=== PATIENT | female | born 1980 | race Caucasian/White ===

== ENCOUNTER 2020-02-05 16:09 | Emergency (ER) | payer MEDICAID, SELFPAY ==
[2020-02-05 16:13] VITALS: BP 184/118; PULSE 116; RESP 18; TEMP 36.6; O2SAT 100; BMI 32.5
--- NOTE | 2020-02-05 16:23 | XR_ITS ---
WS: [id number] EXAM: LEFT ANKLE: 3 VIEWS DATE OF EXAMINATION: 02/05/2020, 1633 hours COMPARISON: None. HISTORY: Patient is 39 years old with ankle pain and swelling status post trauma. FINDINGS: Bone density is normal in appearance. There are findings of a Aguilera C fibular fracture with the fract ure plane extending into the inner syndesmotic ligament region about 4 cm above the level of the join t line. A posterior tibial malleolar fracture is seen with articular surface step-off on the lateral imaging by approximately 3-4 mm. No medial malleolar fracture is seen. No hindfoot fracture. Soft tis brooke swelling in the ankle is demonstrated. XR/XR ankle LT min 3V* [id number] IMPRESSION: Aguilera C fibular fracture and posterior malleolar tibial fracture as described. Orthopedic surgeon referral recommended.
--- NOTE | 2020-02-05 16:25 | ED_ITS ---
HPI - Extremity Injury (Lower) General: Chief Complaint: Extremity Injury, Lower Stated Complaint: LEFT FOOT INJURY Time Seen by Provider: 02/05/20 16:13 Source: patient Mode of arrival: other (crutches ) Limitations: no limitations History of Present Illness: HPI Narrative: Patient is a 39-year-old female who presents to ED today for evaluation of a left foot and ankle injury. Patient tells me approximately 4 days ago she was going down some stairs from her mobile home when she accidentally rolled/twisted the ankle. Patient states she has not been able to bear weight on the extremity since. She has been ambulatory with the help of crutches. No other injury sustained during the fall. MD complaint: ankle injury and foot injury Onset (ago): day(s) Injury: Left: ankle and foot Place: home Severity: severe Relieving factors: immobilization Exacerbating factors: weight bearing, movement and palpation Associated symptoms: Reports inability to bear weight Other symptoms: none Review of Systems Musc: Reports: extremity pain (L foot), extremity swelling (L foot), joint pain (L ankle) and joint swelling (L ankle) Physical Exam Const: COMMON NORMALS: no acute distress, patient oriented x3, no limitations and alert Extremity: GENERAL: Yes normal exam except as noted OTHER: pt has significant swelling throughout her L ankle and foot; there is ecchymosis surrounding the ankle and distal foot; NV intact; no obvious bony deformities noted but swelling obscures bony anatomy Neuro: COMMON NORMALS: patient oriented x3, moves all extremities, no focal motor deficits and no sensory deficits noted SENSORIUM/ORIENTATION: Yes alert Skin: OTHER: see extremity assessment; otherwise normal skin examination Course Consultations: Consultation #1: Dr. Aaron-patient was sent XR films for review; recommends well padded splint, elevation, and will see in office on Wednesday Vital Signs: Vital signs: Vital Signs Temperature 97.8 F 02/05/20 16:13 Pulse Rate 93 02/05/20 17:30 Respiratory Rate 18 02/05/20 17:30 Blood Pressure 163/91 02/05/20 17:30 Pulse Oximetry 100 02/05/20 17:30 MDM - Extremity Injury (Lower) MDM Narrative: Medical decision making narrative: pt will be splinted in a short leg posterior/sugar tong splint and information placed to get patient seen by Dr. Aaron on Wednesday for assessment of injury; patient already has crutches; she was instructed to ice and elevate extremity as much as possible; return to ED precautions given Imaging Data^: XR L foot: Radiologist's impression: [facility] [address] [place] [address] XRay Report Signed Patient: Dea Espinosa Unit #: [id number] : 1980 Acct#:[id number] Age/Sex: 39 / F ADM Date: 02/05/20 Loc: ER Room/Bed: Attending Dr: Ordering Provider/Ordering MD: Bouchra Garcia Date of Service: 02/05/20 Procedure(s): XR foot LT min 3V* 03724 Accession Number(s): [id number] Report Number: [id number] WS: [id number] EXAM: LEFT FOOT: 3 VIEWS DATE OF EXAMINATION: 02/05/2020, 1635 hours COMPARISON: None. HISTORY: 39 years old with fall down steps last and twisted the ankle. Complaining of pain. FINDINGS: Bone density is normal in appearance. Minimal change arthritis first metatarsal phalangeal joint. No fracture in the foot is seen. Posterior malleolar distal tibial fracture and Aguilera C fibular fracture noted on the exam. Please see left ankle film examination report from the same date. Tiny heel spur plantar aponeurosis insertion. Soft tissue swelling around the ankle and dorsal foot noted. XR/XR foot LT min 3V* [id number] IMPRESSION: Distal tibial posterior malleolar fracture with slight displacement and Aguilera C fibular fracture. No foot fracture seen. Dorsal soft tissue swelling. Orthopedic surgeon referral recommended. Dictated By: Kyle Colin MD Signed By: Kyle Colin MD Signed Date/Time: 02/05/201705 DD/ 03 XR L ankle: Radiologist's impression: [facility] [address] [place] [address] XRay Report Signed Patient: Dea Espinosa Unit #: [id number] : 1980 Age/Sex: 39 / F ADM Date: 08/17/2 0 Loc: ER Room/Bed: Attending Dr: Ordering Provider/Ordering MD: Bouchra Garcia Date of Service: 02/05/20 Procedure(s): XR ankle LT min 3V* 91115 Accession Number(s): [id number] Report Number: [id number] WS: [id number] EXAM: LEFT ANKLE: 3 VIEWS DATE OF EXAMINATION: 02/05/2020, 1633 hours COMPARISON: None. HISTORY: Patient is 39 years old with ankle pain and swelling status post trauma. FINDINGS: Bone density is normal in appearance. There are findings of a Aguilera C fibular fracture with the fracture plane extending into the inner syndesmotic ligament region about 4 cm above the level of the joint line. A posterior tibial malleolar fracture is seen with articular surface step-off on the lateral imaging by approximately 3-4 mm. No medial malleolar fracture is seen. No hindfoot fracture. Soft tissue swelling in the ankle is demonstrated. XR/XR ankle LT min 3V* [id number] IMPRESSION: Aguilera C fibular fracture and posterior malleolar tibial fracture as described. Orthopedic surgeon referral recommended. Dictated By: Kyle Colin MD Signed By: Kyle Colin MD Signed Date/Time: 02/05/201701 DD/ 99 Discharge Plan Discharge Patient Disposition: Home Clinical Impression: Left fibular fracture Qualifiers: Encounter type: initial encounter Fibula location: shaft Fracture type: closed Fracture morphology: oblique Fracture alignment: displaced Qualified Code(s): S82.432A - Displaced oblique fracture of shaft of left fibula, initial encounter for closed fracture Closed fracture of posterior malleolus of left tibia Qualifiers: Encounter type: initial encounter Qualified Code(s): S82.392A - Other fracture of lower end of left tibia, initial encounter for closed fracture Condition: Stable Prescriptions: New hydrocodone-acetaminophen 5-325 mg tablet 1 tab PO Q6H PRN (Reason: pain) Qty: 20 RF: 0 No Action No Known Home Medications RF: 0 Discharge Orders: Discharge Order (Routine); Ordered 02/05/20 Ordered By: Bouchra Garcia Referrals: Enoc Aaron MD [Physician] - Patient Instructions: Ankle Fracture (ED), Leg Fracture (ED), Splint Care (ED) Activity Restrictions/Additional Instructions: As discussed Dr. Aaron wants to see you in his office on Wednesday. You need to be icing and elevating the extremity as much as possible until that appointment. Case management should contact you tomorrow and give you your appointment date and time. If you do not hear from them please contact Dr. Aaron's office so they may give you your appointment time. Discharge Date/Time: 02/05/20 17:48 Coding Level of Care Code ED Environmental Inspector for Chg Fwd Exam Expanded Problem Focused
[2020-02-05 16:55] VITALS: PULSE 110; RESP 20; O2SAT 99
[2020-02-05 17:30] VITALS: BP 163/91; PULSE 93; RESP 18; O2SAT 100
--- NOTE | 2020-02-05 17:45 | PC.NURSE ---
prior to leaving pt is in nad. pt caprefill is less than 3 seconds. pt skin temp in left toes is unchanged pt denies any loss of sensation or function in left toes.
--- NOTE | 2020-02-06 15:22 | DCPLANNER ---
forensic manager had message to schedule a follow up appointment for patient with ortho. forensic manager called the ortho clinic, spoke with Celine, gave clinic patients information. forensic manager was told that patients information would be printed and reviewed. Clinic will call patient with appointment information.
--- NOTE | 2020-02-07 11:51 | DCPLANNER ---
Patient had a follow up appointment scheduled for 02.07.20 with ortho - patient did attend appointment.
== END 2020-02-05 17:48 | disposition home or self-care (01) ==
PROVIDERS: Emergency Provider Physician Assistant
DX: S82.392A Other fracture of lower end of left tibia, initial encounter for closed fracture (principal); S82.432A Displaced oblique fracture of shaft of left fibula, initial encounter for closed fracture; X50.1XXA Overexertion from prolonged static or awkward postures, initial encounter
CPT/HCPCS: 12345; 29515; 73610; 73630; 99281; 99283

== ENCOUNTER 2020-02-08 12:57 | Day surgery (SDC) | payer MEDICAID, SELFPAY ==
[2020-02-07 16:33] VITALS: BMI 32.5
[2020-02-08] VITALS (9 sets, daily range): BP systolic 119–157; BP diastolic 86–96; PULSE 64–74; RESP 12–18; TEMP 36.1–36.6; O2SAT 98–100
--- NOTE | 2020-02-08 | XR_ITS ---
WS: [id number] EXAM: Fluoroscopy provided to the orthopedic service for visualization during left ankle fracture fixation DATE OF EXAMINATION: 01/21/2020 COMPARISON: Left ankle films from 02/05/2020 HISTORY: 39 years old with Aguilera C fibular fracture and posterior malleolar fracture of the tibia FLUOROSCOPY TIME: 45.9 seconds. FINDINGS: Fluoroscopy provided to the orthopedic service for visualization during open reduction internal fixat ion of ankle fractures. Fluoroscopic spot images show lateral fibular fracture fixation plate and tra nsverse fracture screws stabilizing the Aguilera C fibular fracture. 2 screws have been placed for stabi lization of the posterior tibial malleolar fracture. Dedicated post procedure imaging recommended. Pl ease see operative report for further details. XR/XR ankle LT 2V [id number] IMPRESSION: Fluoroscopy provided to the orthopedic service for visualization during open re duction internal fixation of tibial and fibular fractures. Spot images show red uced alignment.
--- NOTE | 2020-02-08 | SCC_ITS ---
Procedure Done: Open reduction internal fixation lateral and posterior malleolus I left ankle 45.9 seconds of fluoroscopic guidance, for a cumulative dose of 1.47 mGy, was provided to Dr. Aaron by the radiology department. C-arm images of the LEFT ankle were saved for the patient's permanent record. [facility]ITAL[facility]
[2020-02-08] MEDS: sodium chloride 0.9% 1,000 ML 30 ML IV (13:35)
[2020-02-08] MEDS: midazolam 1 mg/mL INJ 5 ML 5 MG IVP (14:35)
[2020-02-08] MEDS: fentaNYL 50 mcg/mL INJ 2mL 100 MCG IVP (14:35)
--- NOTE | 2020-02-08 14:40 | ANES.PREANE2 ---
Pre-Anesthetic Assessment Pre-Anesthetic Assessment: Height/Weight: Height 1.75 m Weight 99.79 kg Temp Pulse Resp BP 97.3 F L 73 18 157/95 02/08/20 13:23 02/08/20 13:23 02/08/20 13:23 02/08/20 13:23 Preop Diagnosis: Left bimalleolar ankle fracture Proposed Procedure: Operation Date: 02/08/20 15:00 Proposed Procedures p ORIF left bimallalor fracture 42715 S82.842A(Left) - Enoc Aaron MD Familial anesthetic complications: None Was Beta Skip taken within 24 hours: N/A Last intake: Intake Last Liquid Date 02/08/20 7up this morning Last Solid Date 02/07/20 Last Solid Time 18:00 Social: Social History: No alcohol and No tobacco Exam: Pre-Anes Outpt Exam: alert, oriented x 3, clear to auscultation bilaterally and regular rate & rhythm Airway: Cervical ROM: WNL MP: 2 Dentition: Chipped Metabolic: Metabolic: Morbid obesity Anesthetic Plan: ASA status: 1 Anesthesia: Regional (specify below) Risk of > 500 ml blood loss (7ml/kg in children): No Meds/Allergies Current Medications: Current Medications Generic Name Dose Route Start Last Admin Trade Name Freq PRN Reason Stop Dose Admin Sodium Chloride 1,000 mls @ 30 ml s/hr 02/08/20 08:00 02/08/20 13:35 Sodium Chloride 0.9% IV 02/09/20 07:59 30 mls/hr .Q24H SHEILA Administration PFSH Anesthesia PFSH: Social History Smoking and tobacco status: never smoked Alcohol intake: never Data Anesthesia Cardiac Studies: No Data to Display
--- NOTE | 2020-02-08 14:40 | ANES.PROC ---
Anesthesia Procedures Procedure/Date: 02/08/20 Nerve Block ^: Nerve Block 1: Main Anesthesia: general anesthesia Time Out Performed: Yes Consent: requested by attending/covering physician, from patient, risks and benefits reviewed and patient agrees to proceed Nerve block location: popliteal (L) Anesthesia monitors applied: pulse oximetry and oxygen Nerve block position: supine Anesthetic Used: ropivicaine 0.5% and with decadron (3 mg) Amount of anesthesia used (mL): 23 Ultrasound used to: recognize landmarks Nerve Stimulator Used?: No Interscalene/Femoral BLK: 4 stimuplex 21 g needle used for position and inplane approach, visualize local anesthetic spread and no vascular puncture identified Injection: neg aspiration of heme Patient Tolerated Procedure: well Complications: none Nerve Block 2: Main Anesthesia: general anesthesia Time Out Performed: Yes Consent: requested by attending/covering physician, from patient, risks and benefits reviewed and patient agrees to proceed Nerve block location: adductor canal (L) Anesthesia monitors applied: pulse oximetry and oxygen Anesthetic Used: ropivicaine 0.5% and with decadron (1 mg) Amount of anesthesia used (mL): 7 Ultrasound used to: recognize landmarks Interscalene/Femoral BLK: 4 stimuplex 21 g needle used for position and inplane approach, visualize local anesthetic spread and no vascular puncture identified Injection: neg aspiration of heme Patient Tolerated Procedure: well and no complications Complications: none
--- NOTE | 2020-02-08 14:41 | W.PM.OPSUD ---
Surgery/Procedure H&P Update DATE OF PROCEDURE: February 08, 2020 DATE H&P PERFORMED: 02/07/20 PREOP DIAGNOSIS: Left bimalleolar ankle fracture PLANNED PROCEDURE: Operation Date: 02/08/20 15:00 Proposed Procedures p ORIF left bimallalor fracture 38196 S82.842A(Left) - Enoc Aaron MD
--- NOTE | 2020-02-08 17:07 | P.OP_ITS ---
Operative Report Date of procedure: February 08, 2020 Pre-op Diagnosis: Left bimalleolar ankle fracture Post-op diagnosis: same Post-op Findings: Patient had a long oblique fracture of the lateral malleolus above the level of the syndesmosis and a large posterior malleolar fracture Procedure Done: Open reduction internal fixation lateral and posterior malleolus I left ankle Implants: [place] Variax 10 hole semitubular plate Pathology: none sent Surgeon: Enoc Aaron Anesthesia: General Estimated blood loss (mL): 20 Tourniquet time (min): 51 Complications: None Findings: d a long oblique fracture of the lateral malleolus above the level of the syndesmosis and a large posterior malleolar fracture Condition: stable Disposition: PACU Procedure: The patient was taken to the operating room and given 2 g of Ancef. She is prepped and draped in the lateral position with her left ankle exposed on top and a tourniquet on the left thigh. A timeout was performed. A 12 cm long incision was made posterior from the tip of the lateral malleolus extending proximally. Dissection was carried down to the perineal musculature. The musculature was reflected posteriorly and the lateral fibula exposed. The fibula was brought to length and fixed provisionally with a lobster claw clamp. 2 compression screws were placed providing provisional fixation. A 10 hole [place] plate was then contoured from the lateral malleolus extending proximally. It was fixed proximally and distally with 4 4 locking and nonlocking screws\. Dissection was then accomplished between the peroneal tendons and Achilles and dissection brought down to the posterior malleolus. Fluoroscopy used to verify reduction and to cannulated screws and washers were placed from posterior to anterior stabilizing that fragment. The wound was irrigated with saline. Deep tissues were closed with 2-0 Vicryl. The skin was closed with skin elliot. Xeroflo gauze, 4 x 4 fours, compressive web roll and Tucker wrap were applied. The patient was placed in a boot. She was extubated taken recovery room in stable condition.
--- NOTE | 2020-02-08 17:21 | SUR.PHASEI ---
RECIEVED PT FROM OR SLEEPY WITH GOOD RESP NOTED LT FOOT ELEVATED SOFT DRESSING D/I IN BOOT , DISTAL TOES PINK WITH CAP REFILL LESS THAN 3 SECONDS PT AWAKES TO VOICE BUT QUICKLY BACK TO SLEEP NO S/S OF PAIN. PT HAD BLOCK PRIOR TO SURGERY.
--- NOTE | 2020-02-08 17:24 | SUR.PHASEI ---
PT HAD LT POPLITEAL AND ADDUCTOR CANAL BLOCKS PRIOR TO SURGERY
--- NOTE | 2020-02-08 17:29 | SUR.PHASEI ---
PT ON RA SATS 100% PT AWAKES EASILY DENIES PAIN AND NAUSEA PT REQUESTS DR DAVALOS TO SIP ON IN OPS, LT FOOT UNCHANGED VSS
--- NOTE | 2020-02-08 19:08 | ANE.PACU2 ---
Inpatient post-anesthesia follow up: Airway intact: Yes Vital signs: Temperature 97 F Pulse Rate 67 Respiratory Rate 18 Blood Pressure 119/93 Pulse Oximetry 98 Oxygen Delivery Me thod Room Air Oxygen Flow Rate 8 Fraction of Inspir ed Oxygen Hydration adequate: Yes Nausea and vomiting: No Pain level: 1 Mental status: Baseline
== END 2020-02-08 18:22 | disposition home or self-care (01) ==
PROVIDERS: Visit Provider Orthopaedic Surgery
PROC: (CPT 27814; principal; 2020-02-08 15:05)
DX: S82.842A Displaced bimalleolar fracture of left lower leg, initial encounter for closed fracture (principal); E66.01 Morbid (severe) obesity due to excess calories; X58.XXXA Exposure to other specified factors, initial encounter
CPT/HCPCS: 27814; 12345; 73600; 76000; 96374; 96375; C1713; J1100; J2250; J2405; J2704; J2710; J2795; J3010; J3490; J7030